=== PATIENT | male | born 1975 | race Caucasian/White ===

== ENCOUNTER → 2018-02-09 | Outpatient (CLI) | payer OTHER ==
[~2018-02-09] MED LIST: CIPRO500 MG PO; FLAGYL500 M1 PO; NOHOMEMEDICATIONS; PENTASA 250 MG250 MG PO; XARELTO15 MG PO
--- NOTE | ~2018-02-09 | SLE ---
[facility] [place] [address] POLYSOMNOGRAPHY STUDY Name: CHAD GARCIA Room #: REG [facility].#: [id number] Admission: 02/09/18 Attend Phys: Dionicio Mike MD Discharge: Date of : 75 Report #: [id number] THIS REPORT FOR: //name// CC: Dionicio Recio MULTIPLE SLEEP LATENCY TEST DATE OF SERVICE: 02/10/2018 Mr Garcia is 42 years old who has a diagnosis of sleep apnea for which he uses CPAP on a regular basis; however, he continues to have subjective hypersomnia. His [place] score was still high(14). He was referred to the sleep lab for further evaluation. The night before the multiple sleep latency test, he slept on his CPAP. All pressures that were used on the night of the study were therapeutic. The patient's final pressure was 11 cm of water. The patient's sleep efficiency was 83%. The next day, the patient underwent multiple sleep latency test. This consisted of 5 daytime nap opportunities spaced at 2 hour intervals beginning at 8:07 a.m. Standard protocol was used. During the first nap session, there was no sleep observed. During the second session, sleep latency was 14 minutes and 42 seconds. No REM sleep was observed. During the third and the fourth nap sessions, there was no sleep observed. During the fifth session, sleep latency was 12 minutes and 42 seconds and there was no REM sleep. The patient's mean sleep latency for all five naps was 17 minutes and 50 seconds. IMPRESSION: 1. Normal multiple sleep latency test with no evidence of any pathological hypersomnia. RECOMMENDATION: 1. The patient's multiple sleep latency test was normal. 2. It is recommended that the patient should continue to use CPAP at the prescribed pressure. 3. If the patient continues to have hypersomnia despite effective use of CPAP, then consider adding stimulant medication. There is a subset of patients with sleep apnea who despite effective use of CPAP remain sleepy and stimulant medication would be indicated in that condition. <ELECTRONICALLY SIGNED> By: Dionicio Mike MD 02/10/182111 [id number] 37 Dionicio Mike MD /nt
--- NOTE | ~2018-02-09 | SLE ---
[facility] [place] [address] POLYSOMNOGRAPHY STUDY Name: CHAD GARCIA Room #: REG [facility]#: [id number] Admission: 02/09/18 Attend Phys: Dionicio Mike MD Discharge: Date of : 75 Report #: [id number] THIS REPORT FOR: //name// CC: Dionicio Recio DATE OF SERVICE: 02/09/2018 ATTENDING PHYSICIAN: Dr. Reagan Victor. The patient is a 42-year-old who weighs 237 pounds with a BMI of 30.4. The patient's [place] score was 14. The patient has a history of mild sleep apnea based on previous sleep study with an AHI of 5 per hour and has been on auto CPAP between 5-18 cm water. Due to his persistent hypersomnia, another CPAP study, followed by MSLT was requested by his physician. During the night of study, the patient spent 454 minutes in bed and slept for 377 minutes with a sleep efficiency of 83%. Sleep latency was 8.7 minutes with a REM latency of 78 minutes. Overall sleep architecture showed normal stage 1 sleep, increased stage 2 sleep, absent N3 sleep and normal REM sleep. The patient's EKG monitoring revealed an average heart rate of 63 beats per minute with a maximum of 96 beats per minute. No sustained arrhythmias were observed. PLMS were seen at an index of 6.7 per hour and only 1.3 per hour caused EEG arousals. The patient was started on CPAP at 8 cm of water and titrated up to 11 cm water. The patient's AHI was less than 3 per hour during all the different pressures. At a final CPAP pressure of 11 cm water, the patient slept for 46.5 minutes. The patient had REM as well as supine sleep. The patient's AHI was only 1.3 per hour and oxygen saturations remained above 92%. IMPRESSION: 1. Mild sleep apnea diagnosed by previous sleep study. 2. Mild periodic limb movements of sleep, which does not need to be treated. RECOMMENDATION: 1. CPAP at 11 cm water was very effective in treating patients sleep apnea and should be used on a nightly basis. 2. Follow up in 4-6 weeks to assess compliance with CPAP and to document clinical improvement. [address] [address] POLYSOMNOGRAPHY STUDY Name: CHAD GARCIA Room #: REG [facility]#: [id number] Admission: 02/09/18 Attend Phys: Dionicio Mike MD Discharge: Date of : 75 Report #: [id number] 3. Weight loss is strongly advised. 4. Avoid WOOD SCALER depressants. 5. Caution regarding driving until the patient's hypersomnia has resolved with the above recommendations. 6. TO rule out the possibility of co-existing Narcolepsy or idiopathic hypersomnia, patient underwent MSLT the next day, which is reported separately. <ELECTRONICALLY SIGNED> By: Dionicio Mike MD 02/10/18 [id number] Dionicio Mike MD /nt
[2018-02-10 14:56] LABS: AMP/METHAMP Negative (Negative); BARBITURATES Negative (Negative); BENZODIAZEPINES Negative (Negative); COCAINE Negative (Negative); METHADONE Negative (Negative); OPIATES Negative (Negative); PCP Negative (Negative)
== END ==
LOC: SLEEPLAB 02-03 09:16
PROVIDERS: Internal Medicine Critical Care Medicine
DX: G47.33 Obstructive sleep apnea (adult) (pediatric) (principal); G47.61 Periodic limb movement disorder; G47.10 Hypersomnia, unspecified; Z99.89 Dependence on other enabling machines and devices